=== PATIENT | female | born 1990 | race Caucasian/White ===

== ENCOUNTER 2017-10-25 12:51 | Outpatient (REF) | payer MEDICAID, SELFPAY ==
--- NOTE | 2017-10-25 11:40 | PAPFT_PTH ---
PATIENT: Romelia Collins LOC: [facility] U#:[id number] AGE/SX: 27/F ROOM: RE10/25/[address]: Nicolasa Murray MD : 1990 BED: DIS: 10/25/2017 SPEC #: [id number] RECD: 10/25/17 12:59 STATUS: CHERYL RELacey #: [id number] ZENAIDA: 10/25/17 11:[address]: Nicolasa Murray DEPT: [facility] Cytology RECD BY: Arelis Zamorano ENTERED: 10/25/17 12:59 SP TYPE: PAPFT OTHR DR: Sanchez Vaughn Tissues: 1 - CX/ENDOCX FOR PAP SMEARS Procedures: PAP THIN PREP/[facility] Screening Comments: [id number]
== END 2017-10-25 12:52 ==
LOC: LBN 12:51
PROVIDERS: PCP Family Medicine; Visit Provider Obstetrics & Gynecology
DX: Z12.4 Encounter for screening for malignant neoplasm of cervix (principal)
CPT/HCPCS: 88142

== ENCOUNTER 2023-04-26 14:05 | Outpatient (REF) | payer MEDICAID, SELFPAY ==
--- NOTE | 2023-04-26 13:30 | PAPFT_PTH ---
PATIENT: Romelia Collnis LOC: [facility] U#:[id number] AGE/SX: 33/F ROOM: RE04/26/[address]: Mayra Carreon : 1990 BED: DIS: 04/26/2023 SPEC #: [id number] RECD: 04/26/23 17:19 STATUS: CHERYL REQ #: [id number] ZENAIDA: 04/26/23 13:[address]: Mayra Carreon DEPT: [facility] Cytology RECD BY: Arelis Zamorano ENTERED: 04/26/23 17:19 SP TYPE: PAPFT ADEN DR: aSnchez Vaughn Tissues: 1 - CX/ENDOCX FOR PAP SMEARS Procedures: PAP THIN PREP/[facility] Screening HPV DNA PROBE Comments: [id number]
== END 2023-04-26 14:06 | disposition home or self-care (01) ==
LOC: LBN 14:05
PROVIDERS: PCP Family Medicine; Visit Provider Advanced Practice Midwife
DX: Z12.4 Encounter for screening for malignant neoplasm of cervix (principal)
CPT/HCPCS: 88142; 87624

== ENCOUNTER → 2023-05-01 04:36 | Outpatient (CLI) | payer MEDICAID, SELFPAY ==
--- NOTE | 2023-05-01 06:45 | DI.US_ITS ---
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 COMPARISON: US ULTRASOUND RETROPERITONEAL COMPLETE from 04/15/2013 US ULTRASOUND OB TRANSVAGINAL from 04/15/2013 US SURVEY*(P) from 06/27/2013 US C OB ULTRASOUND from 03/01/2017 FINDINGS: UTERUS: Anteverted. 8.6 x 3.3 x 6.8 cm. Two separate divergent uterine horns, consistent with uterus didelph ys. Endometrium: 5 mm Myometrium: Unremarkable. Cervix: Unremarkable. OVARIES: Right: Cyst or mass: None. Left: Cyst or mass: None. DOPPLER: Color: Symmetric and uniform flow to both ovaries. No hyperemia. CUL-DE-SAC: Free fluid: None. IMPRESSION: 1. 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 2. Unremarkable bilateral ovaries. DATA REPOSITORY:
== END ==
PROVIDERS: PCP Family Medicine; Visit Provider Advanced Practice Midwife
DX: N93.0 Postcoital and contact bleeding (principal)
CPT/HCPCS: 76830; 76856

== ENCOUNTER 2024-05-21 02:40 | Outpatient (CLI) | payer MEDICAID, SELFPAY ==
[2024-05-21 08:30] LABS: HCT 42.4 % (36.0-46.0); HGB 14.1 g/dL (11.2-15.7); MCHC 33.3 % (32.0-36.0); MCV 96 fL (80-95); MPV 10.7 fL (8.0-11.0); Platelet Count 177 10^3/uL (130-400); RDW 12.3 % (11.7-14.6); WBC 4.69 10^3/uL (4.4-10.8)
[2024-05-21 09:35] LABS: ALT 23 U/L (14-59); AST 21 U/L (15-37); Albumin 3.6 g/dL (3.4-5.0); Alkaline Phosphatase 55 U/L (46-116); Anion Gap 5.3 mmol/L (3-11); BUN 14 mg/dL (7-18); Bilirubin, Total 0.79 mg/dL (0.2-1.0); CO2 26.7 mmol/L (21.0-32.0); CREATININE 0.9 mg/dL (0.55-1.02); Calcium 8.7 mg/dL (8.5-10.1); Calculated LDL 91 mg/dL (<100); Chloride 108 mmol/L (98-107); Cholesterol 173 mg/dL (<200); Estimated GFR 84.97 (mL/min/1.73m2); Glucose 92 mg/dL (74-106); HDL Cholesterol 75 mg/dL (40-60); Potassium 4.2 mmol/L (3.5-5.1); Sodium 140 mmol/L (136-145); Total Protein 6.8 g/dL (6.4-8.2); Triglyceride 37 mg/dL (<150); Vitamin D 25 Total 17.2 ng/mL (30-100)
== END 2024-05-21 02:41 | disposition home or self-care (01) ==
PROVIDERS: PCP Family Medicine; Visit Provider Nurse Practitioner Women's Health
DX: Z01.419 Encounter for gynecological examination (general) (routine) without abnormal findings (principal)
CPT/HCPCS: 36415; 80053; 80061; 82306; 85027

== ENCOUNTER 2025-01-16 00:21 | Outpatient (CLI) | payer MEDICAID, SELFPAY ==
[2025-01-16 14:46] LABS: Ferritin 63 ng/mL (8-252); TSH (W/Ref FT4) 0.89 uIU/mL (0.36-3.74); Vitamin D 25 Total 33 ng/mL (30-100)
[2025-01-17 10:04] LABS: HBs Antibody, Quant 982.5 mIU/mL (See Note); Hepatitis B Surface Antigen Negative (Negative)
[2025-01-17 10:10] LABS: Hepatitis C Ab w Rflx HCV PCR Negative (Negative)
== END 2025-01-16 00:22 | disposition home or self-care (01) ==
LOC: LOS 00:21
PROVIDERS: PCP Nurse Practitioner Family; Visit Provider Nurse Practitioner Family
DX: R53.83 Other fatigue (principal); Z11.59 Encounter for screening for other viral diseases
CPT/HCPCS: 36415; 82306; 86704; 86706; 86803; 87340; 82728; 84443

== ENCOUNTER → 2025-02-04 00:25 | Outpatient (CLI) | payer MEDICAID, SELFPAY ==
--- NOTE | 2025-02-04 08:35 | DI.RAD_ITS ---
Exam(s) XR CHEST 2V PA LATERAL EXAM: XR CHEST 2V PA LATERAL CLINICAL HISTORY: chest pain,r07.9. TECHNIQUE: 2D digital imaging was performed. COMPARISON: No exams were available for comparison FINDINGS: 2 views: Heart size is normal. The mediastinum is not widened. Lungs are clear. No infiltrates nor pleural effusions. IMPRESSION: No acute pulmonary findings. DATA REPOSITORY: RADIATION DOSE DELIVERED:
== END ==
LOC: DI 00:25
PROVIDERS: PCP Nurse Practitioner Family; Visit Provider Nurse Practitioner Family
DX: R07.9 Chest pain, unspecified (principal)
CPT/HCPCS: 71046

== ENCOUNTER → 2025-03-07 01:26 | Outpatient (CLI) | payer MEDICAID, SELFPAY ==
--- NOTE | 2025-03-07 06:45 | DI.US_ITS ---
Exam(s) US BREAST LT COMPLETE MAMMO DIAGNOSTIC BI EXAM: MAMMO DIAGNOSTIC BI CLINICAL HISTORY: left breast pain,n64.4. COMPARISON: No exams were available for comparison Baseline examination. TECHNIQUE: Craniocaudal and mediolateral oblique Full Field Digital Mammography views of both breasts with Computer Aided Diagnosis followed by Tomosynthesis and left breast ultrasound. FINDINGS: Mammography/Tomosynthesis: Masses: None seen. Architectural Distortion: None seen. Microcalcifications: No suspicious pleomorphic-type are seen. Skin Thickening/Nipple Retraction: None. Left breast US: Echotexture: Normal appearance of the glandular tissue. Shadowing: No suspicious foci. Cyst: None. Solid lesions: None seen. Ductal dilation: None. IMPRESSION: 1. No evidence of malignancy is noted. 2. Unless there is more urgent need, follow-up screening mammography is recommended, as per [place] [employer] guidelines. BI-RADS Category 1 - Negative Breast Density - Category C - The breast are heterogeneously dense, which may obscure small masses. Breast density Category C or D implies that the patient has dense breast tissue. Dense breast tissue can make it harder to find cancer on a mammogram. Dense breast tissue is also associated with an increased risk of breast cancer. This information about the result of the mammogram report was provided to the patient to raise their awareness. Use this report when you speak with the patient about their risks for breast cancer, which includes their family history. At that time, you may recommend additional screening tests (Ultrasound or MRI) as these tests may add significant information. A negative radiographic report should not delay biopsy if a dominant or clinically suspicious mass is present. Up to ten percent of cancers are not identified on mammography. A negative report may reinforce clinical impression. Adenosis and dense breasts may obscure an underlying neoplasm. False positive reports average 6 to 10%. Patient will receive a letter notifying them of these results. Annual screening mammography is recommended at age 40 or sooner if clinically indicated.
== END ==
LOC: DI 01:27
PROVIDERS: PCP Nurse Practitioner Family; Visit Provider Nurse Practitioner Family
DX: N64.4 Mastodynia (principal); Z12.31 Encounter for screening mammogram for malignant neoplasm of breast
CPT/HCPCS: 76642; 77062; 77066; G0279